=== PATIENT | female | born 1970 | race Caucasian/White ===

== ENCOUNTER 2021-07-25 10:51 | Day surgery (SDC) | payer BC ==
[~2021-07-25 10:51] MED LIST: LACTATED RINGERS 1,000 ML IV SCH; LIDOCAINE 1% (10MG/ML) FOR IV START INTRADERMA PRN
[2021-07-25 11:44] VITALS: RESP 16; TEMP 97.8
[2021-07-25] MEDS ORDERED: PROPOFOL 10 MG/ML 20 ML VIAL IV ONE (12:48)
[2021-07-25] MEDS ORDERED: LIDOCAINE 1% INJ 10MG/ML (20 ML MDV) ONE (12:48)
--- NOTE | 2021-07-25 13:24 | P.PCN ---
Date of Procedure: 07/25/21 Procedure(s) Performed: BRIEF HISTORY: Patient is a 50-year-old pleasant male scheduled for an elective colonoscopy as a part of as a part of screening for colorectal neoplasia. She does have family history of colon cancer in her father at age 80. PROCEDURE PERFORMED: Colonoscopy. PREOPERATIVE DIAGNOSIS: Screening for colon cancer. IV sedation per Anesthesia. PROCEDURE: After informed consent was obtained, the patient, was brought into the endoscopy unit. IV sedation was administered by Anesthesia under continuous monitoring. Digital rectal examination was normal. Initially the Olympus CF-160 flexible video colonoscope was then inserted in the rectum, gradually advanced into the cecum without any difficulty. Careful examination was performed as the scope was gradually being withdrawn. Ileocecal valve and the appendiceal orifice were visualized and appeared normal. Prep was excellent. Mucosa of the cecum, ascending colon, transverse colon, descending colon, sigmoid colon, and rectum appeared normal. Retroflexion was performed in the rectum and no lesions were seen. The patient tolerated the procedure well. IMPRESSION: Normal-appearing colon from rectum to cecum no evidence of colorectal neoplasia . RECOMMENDATIONS: Findings of this examination were discussed with the patient well as her family. She was advised to have a repeat screening colonoscopy every 5 years because of the family history of colon cancer.
[2021-07-25 13:43] VITALS: BP 114/74; PULSE 65
== END 2021-07-25 13:55 | disposition home or self-care (01) ==
LOC: ORWHC2ENDO 10:51
PROVIDERS: ATTEND Internal Medicine Gastroenterology
DX: Z12.11 Encounter for screening for malignant neoplasm of colon (principal); Z80.0 Family history of malignant neoplasm of digestive organs; M33.10 Other dermatomyositis, organ involvement unspecified; Z79.899 Other long term (current) drug therapy
CPT/HCPCS: 45378; J2001; J2704